=== PATIENT | male | born 1960 | race Caucasian/White ===

== ENCOUNTER 2022-05-31 16:14 | Outpatient (CLI) | payer OTHER, SELFPAY ==
--- NOTE | 2022-05-31 16:30 | CRLHL7_ITS ---
For Patients: As a result of the Century Cures Act, medical imaging exams and procedure reports are released immediately into your electronic medical record. You may view this report before your referring provider. If you have questions, please contact your health care provider. INDICATION: Midline neck mass. COMPARISON: None. TECHNIQUE: CT soft tissue neck with IV contrast. ICD 370, 90 cc. FINDINGS: There is a low-attenuation cystic lesion in the subcutaneous fat of the left neck at the level of the thyroid cartilage measuring approximately 6 x 5 mm (series 3, image 56). This surrounding increased density may be secondary to chronic inflammatory change. There is no extension into the deep soft tissues of the neck. Specifically, this cyst is not imbedded within the strap muscles. Overall, finding likely represents a carbuncle or sebaceous cyst with chronic surrounding reactive change and inflammation. No enlarged cervical lymph nodes bilaterally. No supraclavicular superior mediastinal adenopathy. Normal bilateral parotid and submandibular glands. Normal thyroid gland. Nasopharynx and oropharynx are clear. No inflammation within the paravertebral fat pads are retropharyngeal space. Normal thickness of the epiglottis. Normal glottis with symmetric vocal cords. Lung apices are clear. Normal alignment of cervical spine. No prevertebral soft tissue swelling. Visualized paranasal sinuses and mastoid air cells are clear. IMPRESSION: 1. Low-attenuation cystic lesion in the subcutaneous fat of the left neck at the level of the thyroid cartilage likely represents a carbuncle or chronic sebaceous cyst with surrounding reactive change or inflammation. 2. No adenopathy. 3. Normal bilateral parotid and submandibular glands. Normal thyroid gland. 4. Normal deep soft tissues of the neck Please note that all CT scans at this facility use dose modulation, iterative reconstruction, and/or weight-based dosing when appropriate to reduce radiation dose to as low as reasonably achievable. Dictated by Mikel Dexter MD @ 06/01/2022 11:32:30 AM (Electronically Signed)
[2022-05-31 16:47] LABS: Creatinine* 1.1 mg/dL (0.5-1.5); Estimated Glomerular Filt Rate 76 ml/min
== END 2022-05-31 16:15 | disposition home or self-care (01) ==
LOC: CT 16:15
PROVIDERS: PCP Otolaryngology; Visit Provider Otolaryngology
DX: R22.1 Localized swelling, mass and lump, neck (principal); L98.9 Disorder of the skin and subcutaneous tissue, unspecified
CPT/HCPCS: 36415; 70491; 82565; Q9967

== ENCOUNTER 2022-05-31 19:08 | Outpatient (CLI) | payer OTHER, SELFPAY ==
--- NOTE | 2022-08-09 12:27 | W.PM.SLEEP ---
Sleep Study Details Details Interpreting Provider: Emilio Date of Sleep Study: 05/31/22 Sleep Study Details: STUDY TYPE:? Home unattended ? BMI:? Not recorded ORDERING PROVIDER:? Emilio INDICATION:? Concerns about sleep apnea ? SLEEP SUMMARY:? 399.2 minutes monitored RESPIRATORY SUMMARY:? AHI 34.4, supine 45.8, right lateral 20.3 Low oxygen 81 5.3% of study oxygen less than 90% Snoring 21.9% PERIODIC LIMB MOVEMENTS OF SLEEP:? Not recorded during home study CARDIAC:? Range 55-91, mean 61.5 IMPRESSION:? Severe obstructive sleep apnea with supine position dependency RECOMMENDATION: Treatment options would include AutoSet CPAP versus dental appliance. I would favor AutoSet CPAP.
== END 2022-05-31 19:09 | disposition home or self-care (01) ==
LOC: SLEEP 19:10
PROVIDERS: Visit Provider Otolaryngology
DX: G47.33 Obstructive sleep apnea (adult) (pediatric) (principal); R22.1 Localized swelling, mass and lump, neck
CPT/HCPCS: 36415; 70491; 82565; 95806; Q9967